=== PATIENT | female | born 1960 | race Caucasian/White ===

== ENCOUNTER 2020-05-17 22:56 | Emergency (ER) | payer MEDICARE ==
[~2020-05-17] VITALS: Ht 165.1 cm; Wt 61.0 kg
[~2020-05-17 22:56] MED LIST: ASA LO-DOSE81 MG OR; AYGESTIN5 MG OR; CEPHALEXIN500 MG OR; CLIMARA0.05 MG TD; DYAZIDE1 CAP OR; FLONASE; GABAPENTIN300 MG OR; LOPRESSOR12.5 MG OR; MET12.5TAB OR; NEURONTIN300 MG OR; PERCOCET 5/325M1 TAB OR; PRILOSEC20 MG OR; SOMA350 MG OR; VICODIN ES1 TAB OR; XANAX0.5 MG OR; [UNRECOGNIZED DRUG - OTHER] OR
[2020-05-18] VITALS: BP 118/52
== END 2020-05-18 00:05 | disposition home or self-care (01) ==
LOC: ED 22:56
DX: S93.601A Unspecified sprain of right foot, initial encounter (principal); I10 Essential (primary) hypertension; F41.9 Anxiety disorder, unspecified; F17.200 Nicotine dependence, unspecified, uncomplicated; X50.0XXA Overexertion from strenuous movement or load, initial encounter; Y93.89 Activity, other specified; Y92.009 Unspecified place in unspecified non-institutional (private) residence as the place of occurrence of the external cause

== ENCOUNTER 2020-11-10 06:56 | Day surgery (SDC) | payer MEDICARE ==
[~2020-11-10 06:56] MED LIST changes: +ASPIRIN81 MG PO
[2020-11-10] MEDS ORDERED: TORADOL PO (10:00)
[2020-11-10] MEDS ORDERED: TRAMADOL HCL50 MG PO (10:01)
[2020-11-10 11:12] VITALS: BP 122/65
== END 2020-11-10 11:24 | disposition home or self-care (01) ==
LOC: ORM 06:56
PROVIDERS: ATTEND Surgery
PROC: 0FT44ZZ Resection of Gallbladder, Percutaneous Endoscopic Approach (ICD-10-PCS; principal; 2020-11-10)
DX: K80.10 Calculus of gallbladder with chronic cholecystitis without obstruction (principal); I10 Essential (primary) hypertension; F41.9 Anxiety disorder, unspecified; R22.43 Localized swelling, mass and lump, lower limb, bilateral
CPT/HCPCS: J0131; J1610; J2710; Q9967

== ENCOUNTER 2021-02-25 02:51 | Emergency (ER) | payer MEDICARE ==
[~2021-02-25] VITALS: Ht 170.2 cm; Wt 65.0 kg
[~2021-02-25 02:51] MED LIST changes: +TORADOL PO; +TRAMADOL HCL50 MG PO
[2021-02-25] MEDS ORDERED: NAPROXEN500 MG PO (03:15)
[2021-02-25] MEDS ORDERED: METOPROL TAR25 MG PO (03:22)
[2021-02-25 03:30] VITALS: BP 130/73
== END 2021-02-25 03:30 | disposition home or self-care (01) ==
LOC: ED 02:51
DX: S96.911A Strain of unspecified muscle and tendon at ankle and foot level, right foot, initial encounter (principal); I10 Essential (primary) hypertension; F41.9 Anxiety disorder, unspecified; F17.200 Nicotine dependence, unspecified, uncomplicated; X50.0XXA Overexertion from strenuous movement or load, initial encounter; Y93.89 Activity, other specified; Y92.009 Unspecified place in unspecified non-institutional (private) residence as the place of occurrence of the external cause; Z95.0 Presence of cardiac pacemaker

== ENCOUNTER 2021-05-17 14:15 | Emergency (ER) | payer MEDICARE ==
[~2021-05-17] VITALS: Ht 170.2 cm; Wt 65.9 kg
[~2021-05-17 14:15] MED LIST changes: +METOPROL TAR25 MG PO; +NAPROXEN500 MG PO
[2021-05-17 14:28] VITALS: BP 128/83
[2021-05-17 14:30] VITALS: BP 140/89
[2021-05-17] MEDS ORDERED: BUSPIRONE5 MG PO (14:38)
[2021-05-17 15:00] VITALS: BP 121/72
[2021-05-17] MEDS ORDERED: TRAMADOL HCL50 MG PO (15:28)
[2021-05-17 15:39] VITALS: BP 121/72
== END 2021-05-17 15:48 | disposition home or self-care (01) ==
LOC: ED 14:15
DX: S93.601A Unspecified sprain of right foot, initial encounter (principal); I10 Essential (primary) hypertension; F41.9 Anxiety disorder, unspecified; F17.210 Nicotine dependence, cigarettes, uncomplicated; W54.1XXA Struck by dog, initial encounter; Y92.009 Unspecified place in unspecified non-institutional (private) residence as the place of occurrence of the external cause

== ENCOUNTER 2021-07-10 17:38 | Observation (INO) | payer MEDICARE ==
[~2021-07-10] VITALS: Ht 170.2 cm; Wt 63.0 kg
[~2021-07-10 17:38] MED LIST changes: +BUSPIRONE5 MG PO
[2021-07-10 18:39] LABS: HEMATOCRIT 36.9 % (37.0-47.0); IMMATURE GRANULOCYTES 0.4 % (0.0-5.0); MEAN CELL VOLUME 96.9 fL CALC (80.0-100.0); MEAN CORPUSCULAR HGB 31.5 pG CALC (26.0-32.0); MEAN CORPUSCULAR HGB CONC 32.5 g/dL CAL (32.0-36.0); NEUT# 3.95 thou/uL (2.00-7.15); RED BLOOD COUNT 3.81 mill/uL (4.20-5.60); RED CELL DISTRI WIDTH 12.9 % (11.5-15.5)
[2021-07-10 18:51] LABS: ALBUMIN 3.7 g/dL (3.2-5.0); ALKALINE PHOSPHATASE 51 u/l (38-126); BUN 6 mg/dL (8-23); BUN/CREATININE RATIO 9 (12-20 (CALC)); CARBON DIOXIDE 22 mmol/l (22-30); CHLORIDE 109 mmol/l (95-108); CREATININE 0.6 mg/dL (0.5-1.0); GFR > 60 ML/MIN (>=60 (CALC)); GFR FOR AFR.AMER. > 60 ML/MIN (>=60 (CALC)); SODIUM 138 mmol/l (137-146); TOTAL PROTEIN 6.2 g/dL (6.3-8.2)
[2021-07-10 18:55] LABS: ANION GAP 10 (6-22 (CALC)); BILIRUBIN, TOTAL 0.5 mg/dL (0.0-1.4); POTASSIUM 3.1 mmol/l (3.5-5.1); SGOT/AST 64 u/l (9-36)
[2021-07-10 19:19] LABS: MAGNESIUM 2.2 mg/dL (1.6-2.3)
[2021-07-10 21:46] VITALS: BP 113/89
[2021-07-10 23:14] VITALS: BP 132/84
[2021-07-10 23:30] VITALS: BP 116/63
[2021-07-11] VITALS (7 sets, daily range): BP systolic 113–146; BP diastolic 65–78
[2021-07-11 06:35] LABS: BUN 7 mg/dL (8-23); BUN/CREATININE RATIO 12 (12-20 (CALC)); CARBON DIOXIDE 24 mmol/l (22-30); CHLORIDE 113 mmol/l (95-108); CREATININE 0.6 mg/dL (0.5-1.0); GFR > 60 ML/MIN (>=60 (CALC)); GFR FOR AFR.AMER. > 60 ML/MIN (>=60 (CALC)); SODIUM 140 mmol/l (137-146)
[2021-07-11 06:38] LABS: ANION GAP 7 (6-22 (CALC))
[2021-07-11 06:44] LABS: POTASSIUM 4.4 mmol/l (3.5-5.1)
== END 2021-07-11 12:24 | disposition home or self-care (01) ==
LOC: ED 17:38 → MS2 21:54
PROVIDERS: Internal Medicine; ADMIT Hospitalist; ATTEND Hospitalist
DX: R07.9 Chest pain, unspecified (principal); I10 Essential (primary) hypertension; K21.9 Gastro-esophageal reflux disease without esophagitis; K44.9 Diaphragmatic hernia without obstruction or gangrene; E78.5 Hyperlipidemia, unspecified; F41.9 Anxiety disorder, unspecified; I25.2 Old myocardial infarction; F17.210 Nicotine dependence, cigarettes, uncomplicated; Z95.0 Presence of cardiac pacemaker; Z20.822 Contact with and (suspected) exposure to COVID-19
CPT/HCPCS: J1650

== ENCOUNTER 2022-03-17 21:04 | Emergency (ER) | payer MEDICARE ==
[~2022-03-17] VITALS: Ht 170.2 cm; Wt 70.0 kg
[2022-03-17 21:19] VITALS: BP 113/70
[2022-03-17 21:30] VITALS: BP 114/58
[2022-03-17 21:30] LABS: BASO% 0.5 % (0-3); EOS% 2.7 % (0-8); HEMATOCRIT 41.2 % (37.0-47.0); HEMOGLOBIN 13.6 g/dl (12.0-16.0); IMMATURE GRANULOCYTES 0.8 % (0.0-5.0); MEAN CELL VOLUME 94.7 fL CALC (80.0-100.0); MEAN CORPUSCULAR HGB 31.3 pG CALC (26.0-32.0); MONO% 6.1 % (2-13); NEUT# 3.91 thou/uL (2.00-7.15); NEUT% 50.9 % (42-76); RED BLOOD COUNT 4.35 mill/uL (4.20-5.60); RED CELL DISTRI WIDTH 12.9 % (11.5-15.5)
[2022-03-17 21:44] LABS: ALKALINE PHOSPHATASE 58 u/l (38-126); ANION GAP 13 (6-22 (CALC)); BUN 9 mg/dL (8-23); BUN/CREATININE RATIO 11 (12-20 (CALC)); CARBON DIOXIDE 23 mmol/l (22-30); CHLORIDE 108 mmol/l (95-108); CREATININE 0.8 mg/dL (0.5-1.0); GFR FOR AFR.AMER. > 60 ML/MIN (>=60 (CALC)); GFR OTHER RACES > 60 ML/MIN (>=60 (CALC)); POTASSIUM 3.6 mmol/l (3.5-5.1); SGOT/AST 28 u/l (9-36); SODIUM 141 mmol/l (137-146)
[2022-03-17 21:46] VITALS: BP 119/64
[2022-03-17 21:50] LABS: ALBUMIN 4.6 g/dL (3.2-5.0); BILIRUBIN, TOTAL 0.2 mg/dL (0.0-1.4); TOTAL PROTEIN 7.5 g/dL (6.3-8.2)
[2022-03-17 22:02] VITALS: BP 107/51
[2022-03-17 22:16] VITALS: BP 121/65
[2022-03-17 23:02] VITALS: BP 121/655
[2022-03-17] MEDS ORDERED: NAPROXEN500 MG PO (23:05)
== END 2022-03-17 23:13 | disposition home or self-care (01) ==
LOC: ED 21:04
PROVIDERS: Emergency Medicine
DX: Z04.3 Encounter for examination and observation following other accident (principal); F10.10 Alcohol abuse, uncomplicated; Y90.8 Blood alcohol level of 240 mg/100 ml or more; I11.0 Hypertensive heart disease with heart failure; I50.9 Heart failure, unspecified; J44.9 Chronic obstructive pulmonary disease, unspecified; F41.9 Anxiety disorder, unspecified; F17.200 Nicotine dependence, unspecified, uncomplicated; Z86.73 Personal history of transient ischemic attack (TIA), and cerebral infarction without residual deficits; Z95.0 Presence of cardiac pacemaker
CPT/HCPCS: Q9967

== ENCOUNTER 2022-07-13 11:44 | Emergency (ER) | payer MEDICARE ==
[~2022-07-13] VITALS: Ht 170.2 cm; Wt 78.5 kg
[2022-07-13 11:55] VITALS: BP 151/63
[2022-07-13 12:01] VITALS: BP 131/72
[2022-07-13 12:30] VITALS: BP 136/80
[2022-07-13 13:30] VITALS: BP 155/83
[2022-07-13] MEDS ORDERED: CYCLOBENZAPRINE10 MG PO (13:45)
[2022-07-13] MEDS ORDERED: LORTAB 1010 MG PO (13:45)
[2022-07-13] MEDS ORDERED: PREDNISONE10 MG PO (13:45)
[2022-07-13] MEDS ORDERED: NAPROXEN500 MG PO (13:45)
[2022-07-13 14:01] VITALS: BP 128/71
[2022-07-13 14:28] VITALS: BP 128/71
== END 2022-07-13 14:30 | disposition home or self-care (01) ==
LOC: ED 11:44
DX: S32.030A Wedge compression fracture of third lumbar vertebra, initial encounter for closed fracture (principal); I11.0 Hypertensive heart disease with heart failure; I50.9 Heart failure, unspecified; J44.9 Chronic obstructive pulmonary disease, unspecified; F41.9 Anxiety disorder, unspecified; F17.200 Nicotine dependence, unspecified, uncomplicated; X58.XXXA Exposure to other specified factors, initial encounter; Z95.5 Presence of coronary angioplasty implant and graft; Z86.73 Personal history of transient ischemic attack (TIA), and cerebral infarction without residual deficits